=== PATIENT | female | born 1975 | race Caucasian/White ===

== ENCOUNTER 2016-11-04 18:17 | Emergency (ER) | payer BC ==
[2016-11-04 18:27] VITALS: BP 126/81
--- NOTE | 2016-11-05 21:50 | ED ---
Throat Pain/Nasal Congestion - HPI Summary HPI Summary: Patient presents to ED with CC of eye twitching, drooping which quickly resolved and feeling of numbness around the eye which lasted seconds. She has had a few of these episodes since stating doxycycline 3 days ago from after probable tick bite with EM rash to the posterior left knee. She is concerned these could be neurological symptoms from Lyme disease or a side effect of the medication. It was explained to patient symptoms would be too early for lyme meningitis or symptoms such as bells palsy from lyme. She is 4 days s/p probable tick bite. Cordell other symptoms. Denies aches, joint pains, STANLEY or fevers. She states she had all these symptoms 2 days after the bite, but lasted <24 hours and now feels OK. She was started on a 3 week course of doxy 3 days ago and has currently taken 5 total doses. - History of Current Complaint Chief Complaint: EDEyeProblem Time Seen by Provider: 11/04/16 21:52 Hx Obtained From: Patient Onset/Duration: Sudden Onset Severity: Mild Associated Signs And Symptoms: Positive: Negative - Epiglottits Risk Factors Epiglottis Risk Factors: Negative - Allergies/Home Medications Allergies/Adverse Reactions: Allergies Allergy/AdvReac Type Severity Reaction Status Date / Time No Known Allergies Allergy Verified 11/04/16 18:33 PMH/Surg Hx/FS Hx/Imm Hx Previously Healthy: Yes Sensory History: Denies: Hx Contacts or Glasses Opthamlomology History: Denies: Hx Contacts or Glasses Infectious Disease History: No Infectious Disease History: Denies: Traveled Outside the in Last 30 Days - Social History Occupation: Employed Full-time Lives: With Family Alcohol Use: None Hx Substance Use: No Substance Use Type: Reports: None Hx Tobacco Use: No Smoking Status (MU): Never Smoked Tobacco Review of Systems Constitutional: Negative Eyes: Negative ENT: Negative Respiratory: Negative Gastrointestinal: Negative Positive: no symptoms reported, see HPI Skin: Negative Positive: Paresthesia, Numbness - 0nly in the left eye - intermittent Psychological: Normal All Other Systems Reviewed And Are Negative: Yes Physical Exam Triage Information Reviewed: Yes Vital Signs On Initial Exam: Initial Vitals Temp Pulse Resp BP Pulse Ox 98.0 F 84 18 126/81 98 11/04/16 18:23 11/04/16 18:23 11/04/16 18:23 11/04/16 18:23 11/04/16 18:23 Completion Of Physical Exam Limited Due To: Dementia Appearance: Positive: Well-Appearing, Well-Nourished Skin: Positive: Warm, Skin Color Reflects Adequate Perfusion Head/Face: Positive: Normal Head/Face Inspection Neck: Positive: Supple, Nontender, No Lymphadenopathy Respiratory/Lung Sounds: Positive: Clear to Auscultation, Breath Sounds Present Cardiovascular: Positive: Normal, RRR, Pulses are Symmetrical in both Upper and Lower Extremities Musculoskeletal: Positive: Normal, Strength/ROM Intact Neurological: Positive: Sensory/Motor Intact, Alert, Oriented to Person Place, Time, CN Intact II-III, Reflexes Intact, Normal Gait, Facial Symmetry Psychiatric: Positive: Normal Diagnostics - Vital Signs Vital Signs Temp Pulse Resp BP Pulse Ox 11/04/16 18:30 98.0 F 84 18 126/81 98 11/04/16 18:23 98.0 F 84 18 126/81 98 - Laboratory Lab Statement: Any lab studies that have been ordered have been reviewed, and results considered in the medical decision making process. EENT Course/Dx - Course Course Of Treatment: Patient presents with left lateral eye twitching and intermittent numbness and "drooping" which lasted a few seconds after starting doxycyline from a tick bite. She is concerned over lyme meningitis, bells palsy and other symptoms related to lyme or the doxycycline. Patient is reassured, the lyme must be present for a period of time before certain symptoms develop. If this is a side effect of doxy, it was offered to patient to switch the abx, but patient prefers to continue with doxy since that is the preferred lyme medication stating "its not that bad." She is given a short course of steroids to help offset the reaction and patient agrees to follow up with Dr. Tristan. Denies numbness, tingling or other reaction in the cheek or forehead. - Differential Diagnoses Differential Diagnoses: Other - lyme, lyme meningitis, bells palsy - Diagnoses Provider Diagnoses: Eyelid twitch Discharge - Discharge Plan Condition: Stable Disposition: HOME Prescriptions: predniSONE TAB* [Deltasone TAB*] 50 mg PO DAILY #5 tab Patient Education Materials: Lyme Disease (ED) Referrals: [facility] [Provider Group] [facility] [Provider Group] Alan BOWIE,Rafi Holloway [Medical Doctor] - No Primary Care Phys,NOPCP [Primary Care Provider] - Additional Instructions: Follow up with PCP I have given you referrals Prednisone daily for 5 days (50mg) If worsening symptoms develop, return to ED immediately
== END 2016-11-04 22:40 | disposition home or self-care (01) ==
LOC: ED 18:17
DX: H02.9 Unspecified disorder of eyelid (principal)
CPT/HCPCS: 99281